=== PATIENT | male | born 1995 ===

== ENCOUNTER 2019-02-12 22:12 | Emergency (ER) | payer SELFPAY ==
[~2019-02-12] VITALS: Ht 175.3 cm; Wt 68.0 kg
[2019-02-12 22:23] VITALS: BP 129/45
[2019-02-13] MEDS ORDERED: acetaminophen 325mg tablet PO ONE (01:15)
== END 2019-02-13 03:19 | disposition left against medical advice (07) ==
LOC: ER 22:13
DX: R51 Headache (principal); Z53.21 Procedure and treatment not carried out due to patient leaving prior to being seen by health care provider